=== PATIENT | male | born 1970 | race Two or more races ===

== ENCOUNTER 2017-10-11 10:52 | Emergency (ER) | payer OTHER ==
[2017-10-11 11:03] VITALS: BP 141/87; PULSE 55; TEMP 98.4; BMI 23.7
--- NOTE | 2017-10-11 12:05 | PDOC ---
History of Present Illness - General Chief Complaint: Injury Stated Complaint: RT HAND INJURY Time Seen by Provider: 10/11/17 11:58 History Source: Patient Exam Limitations: No Limitations - History of Present Illness Initial Comments: 10/11/17 12:01 47 yr male with right hand injury after fall 2 days ago. Pt states he missed the last step and landed on right hand. pt is right hand dominant. Occurred: reports: other (2 days ago ) Upper Extremity Pain Location: right: hand Extremity Pain Location - Extremity Pain Location Extremity Pain Locations: right: hand Past History - Past Medical History Allergies/Adverse Reactions: Allergies Allergy/AdvReac Type Severity Reaction Status Date / Time pollen Allergy Uncoded 10/11/17 11:00 Home Medications: Ambulatory Orders NK [No Known Home Medication] 10/11/17 COPD: No - Suicide/Smoking/Psychosocial Hx Smoking Status: Yes Smoking History: Never smoked Have you smoked in the past 12 months: No Number of Cigarettes Smoked Daily: 3 Information on smoking cessation initiated: No Hx Alcohol Use: No Drug/Substance Use Hx: No Substance Use Type: None Review of Systems - Review of Systems Able to Perform ROS?: Yes Is the patient limited Serbian proficient: No Constitutional: No: Symptoms Reported HEENTM: No: Symptoms Reported Respiratory: No: Symptoms reported Cardiac (ROS): No: Symptoms Reported ABD/GI: No: Symptoms Reported : No: Symptoms Reported Musculoskeletal: Yes: Symptoms Reported *Physical Exam - Vital Signs Last Vital Signs Temp Pulse Resp BP Pulse Ox 98.4 F 55 L 18 141/87 100 10/11/17 11:01 10/11/17 11:01 10/11/17 11:01 10/11/17 11:01 10/11/17 11:01 - Physical Exam General Appearance: Yes: Nourished, Appropriately Dressed HEENT: positive: EOMI, DANISH Neck: positive: Supple Respiratory/Chest: positive: Lungs Clear, Normal Breath Sounds Cardiovascular: positive: Regular Rhythm, Regular Rate Musculoskeletal: positive: Normal Inspection Extremity: positive: Normal Capillary Refill, Normal Inspection, Normal Range of Motion, Tender (base of fifth metacarpal right hand with swelling , nv intact ) Integumentary: positive: Normal Color, Dry, Warm Neurologic: positive: Fully Oriented, Alert, Normal Mood/Affect, Normal Response , Motor Strength 5/5 Procedures - Splinting Hand-Made Type: orthoglass (right hand boxers splint placed) ED Treatment Course - RADIOLOGY Radiology Studies Ordered: Category Date Time Status HAND- RIGHT [RAD] Stat Radiology 10/11/17 11:59 Ordered Medical Decision Making - Medical Decision Making 10/11/17 12:04 cc: right hand injury 2 days ago fell on the hand nv intact mild swelling noted to the right metacarpal base will get xray *DC/Admit/Observation/Transfer Diagnosis at time of Disposition: Hand fracture, right Qualifiers: Encounter type: initial encounter Fracture type: closed Qualified Code(s): S62.91XA - Unspecified fracture of right wrist and hand, initial encounter for closed fracture - Discharge Dispostion Disposition: HOME Condition at time of disposition: Good - Referrals Referrals: Mateo Chew MD [Primary Care Provider] - Andres Garcia MD [Staff Physician] - - Patient Instructions Additional Instructions: follow with the orthopedist this week call today to make appointment do not remove the cast or get wet - Post Discharge Activity
== END 2017-10-11 13:02 | disposition home or self-care (01) ==
LOC: JERFT 10:52
PROC: 2W3CX1Z Immobilization of Right Lower Arm using Splint (ICD-10-PCS; principal; 2017-10-11)
DX: S62.91XA Unspecified fracture of right hand, initial encounter for closed fracture (principal); W18.39XA Other fall on same level, initial encounter; Y93.89 Activity, other specified; Y92.89 Other specified places as the place of occurrence of the external cause
CPT/HCPCS: 73130-TC-RT; 99282-25